=== PATIENT | female | born 1975 | race Caucasian/White ===

== ENCOUNTER 2016-08-02 16:13 | Emergency (ER) | payer MEDICARE | END 2016-08-02 19:35 | disposition home or self-care (01) | LOC: FER 16:13 | DX: M54.42 Lumbago with sciatica, left side (principal); Z90.49 Acquired absence of other specified parts of digestive tract; Z88.0 Allergy status to penicillin | CPT/HCPCS: J1100; J1885 ==

== ENCOUNTER 2020-07-23 13:44 | Emergency (ER) | payer MEDICARE ==
[~2020-07-23 13:44] MED LIST: AZITHROMYCIN 2250 MG PO; FLEXERIL10 MG PO; GABAPENTIN 100100 MG PO; HYDROCODON-ACE1 EAC4 PO; PREDNISONE 20MG20 MG PO; TRAZODONE 100M100 MG PO; VENTOLIN (2.5 MG/3 M INH
[2020-07-23] MEDS ORDERED: CLINDAMYCIN 15150 MG PO (15:07)
== END 2020-07-23 15:38 | disposition home or self-care (01) ==
LOC: FER 13:44
DX: K04.7 Periapical abscess without sinus (principal); K02.9 Dental caries, unspecified; Z88.0 Allergy status to penicillin; Z79.899 Other long term (current) drug therapy
CPT/HCPCS: 99283; Q0163

== ENCOUNTER 2020-12-28 14:01 | Emergency (ER) | payer MEDICARE ==
[~2020-12-28 14:01] MED LIST changes: +CLINDAMYCIN 15150 MG PO; +LAMICTAL100 MG PO; +PRISTIQ100 MG PO; +RAMELTEON8 MG PO
== END 2020-12-28 17:23 | disposition home or self-care (01) ==
LOC: FER 14:01
DX: S43.401A Unspecified sprain of right shoulder joint, initial encounter (principal); J45.909 Unspecified asthma, uncomplicated; Z88.0 Allergy status to penicillin; X50.1XXA Overexertion from prolonged static or awkward postures, initial encounter; Y92.009 Unspecified place in unspecified non-institutional (private) residence as the place of occurrence of the external cause
CPT/HCPCS: 73030; 96372; J1885

== ENCOUNTER 2021-07-02 11:44 | Emergency (ER) | payer MEDICARE | END 2021-07-02 13:16 | disposition home or self-care (01) | LOC: FER 11:44 | DX: S46.911A Strain of unspecified muscle, fascia and tendon at shoulder and upper arm level, right arm, initial encounter (principal); I10 Essential (primary) hypertension; J45.909 Unspecified asthma, uncomplicated; Z88.0 Allergy status to penicillin; W19.XXXA Unspecified fall, initial encounter; Y92.009 Unspecified place in unspecified non-institutional (private) residence as the place of occurrence of the external cause | CPT/HCPCS: 73030; 96372; J1100; J1885 ==

== ENCOUNTER 2021-08-22 15:08 | Emergency (ER) | payer MEDICARE ==
[2021-08-22] MEDS ORDERED: MEDROL 4MG DOSEP4 MG PO (17:42)
== END 2021-08-22 18:08 | disposition home or self-care (01) ==
LOC: FER 15:08
DX: M54.31 Sciatica, right side (principal); Z88.0 Allergy status to penicillin
CPT/HCPCS: 96372; J1885; J3301